=== PATIENT | female | born 1965 | race Two or more races ===

== ENCOUNTER 2019-01-19 14:18 | Outpatient (CLI) | payer MEDICAID ==
[~2019-01-19] VITALS: Ht 152.4 cm; Wt 81.2 kg
[2019-01-19 14:30] VITALS: BP 169/82
[2019-01-19] MEDS ORDERED: ATORVASTATIN CA40 MG ORAL (15:55)
[2019-01-19] MEDS ORDERED: LOSARTAN POTASS50 MG ORAL (15:55)
[2019-01-19] MEDS ORDERED: CARVEDILOL25 MG ORAL (15:55)
[2019-01-19] MEDS ORDERED: ASPIRIN EC81 MG ORAL (15:55)
[2019-01-19] MEDS ORDERED: AMLODIPINE BESY10 MG ORAL (15:55)
[2019-01-19] MEDS ORDERED: CHLORTHALIDONE50 MG ORAL (15:55)
--- NOTE | 2019-01-19 17:45 | Consultation ---
DATE OF CONSULTATION: 01/19/2019 NOTE: INCOMPLETE DICTATION CONSULTING PHYSICIAN: Yared Fitzgerald M.D. CHIEF COMPLAINT: Screening colonoscopy, evaluation of chronic GERD. HISTORY OF PRESENT ILLNESS: This is a very pleasant 53-year-old. Yared Fitzgerald M.D. DR: SAIGE JOB#: [id number] CC:
--- NOTE | 2019-01-19 17:45 | Consultation ---
DATE OF CONSULTATION: 01/19/2019 CONSULTING PHYSICIAN: Yared Fitzgerald M.D. CHIEF COMPLAINT: Screening colonoscopy, chronic GERD. HISTORY OF PRESENT ILLNESS: This is a very pleasant 53-year-old female, referred to us for screening colonoscopy evaluation. The patient was also complaining of chronic GERD, chronic cough. She was on Prilosec before without significant improvement. PAST MEDICAL HISTORY: 1. Hypertension. 2. Hypercholesterolemia. ALLERGIES: No known allergies. PAST SURGICAL HISTORY: History of bilateral ovarian surgeries removal. MEDICATIONS: Please see medication reconciliation list. FAMILY HISTORY: No family history of GI malignancies. SOCIAL HISTORY: The patient denies any tobacco, alcohol, or drug abuse. REVIEW OF SYSTEMS: A 10-point review of systems was performed and pertinent positive for chronic GERD. PHYSICAL EXAMINATION: VITAL SIGNS: Temperature 98.2, blood pressure 169/82, pulse , respirations 20. HEENT: Normocephalic and atraumatic. Scleral anicteric. NECK: Supple. No evidence of obvious lymphadenopathy. CARDIOVASCULAR: Regular rate and rhythm. Plus S1 and S2. No obvious murmurs. LUNGS: Decreased breath sounds bilaterally at bases on the supine exam. ABDOMEN: Soft and nontender. No rebound. No guarding. No peritoneal sign. EXTREMITIES: No cyanosis. No clubbing. No edema. ASSESSMENT AND PLAN: This is a 53-year-old female, referred to us for screening colonoscopy and chronic GERD. Plan to do an EGD and colonoscopy. The patient was given instruction and information about colonoscopy. Risks and benefits of procedure was explained to her. The prep was given. Plan to do endoscopy and colonoscopy pending authorization. Yared Fitzgerald M.D. DR: SAIGE JOB#: [id number] CC:
== END 2019-01-19 15:46 | disposition home or self-care (01) ==
LOC: PAN 14:18
DX: K21.9 Gastro-esophageal reflux disease without esophagitis (principal); I10 Essential (primary) hypertension; E78.00 Pure hypercholesterolemia, unspecified; R05 Cough; Z90.722 Acquired absence of ovaries, bilateral